=== PATIENT | female | born 1990 | race Caucasian/White ===

== ENCOUNTER 2016-10-09 11:06 | Day surgery (SDC) | payer OTHER ==
[~2016-10-09] VITALS: Ht 170.2 cm; Wt 102.7 kg
[2016-10-09] VITALS (9 sets, daily range): BP systolic 94–126; BP diastolic 48–74; PULSE 68–84; RESP 14–27; O2SAT 95–97
[~2016-10-09 11:06] MED LIST: CeFAZolin Inj 2 GM in IV Premix 1 EACH IV SCH; IBUP200C PO; LEVO1TBD PO
[2016-10-09] MEDS ORDERED: MetoCLOpramide 5 mg/mL 2 mL Inj ONE (11:07)
[2016-10-09] MEDS ORDERED: Dexamethasone 4 mg/mL Inj ONE (11:07)
[2016-10-09] MEDS ORDERED: Propofol 10,000 mCg/mL 20 mL Inj ONE (11:07)
[2016-10-09] MEDS ORDERED: fentaNYL-PF 50 mCg/mL 2 mL Inj ONE (11:07)
[2016-10-09] MEDS ORDERED: Ondansetron 2 mg/mL 2 mL Inj ONE (11:07)
[2016-10-09] MEDS ORDERED: Lactated Ringer's 1,000 ML IV ONE (11:34)
--- NOTE | 2016-10-09 12:27 | PCM.HPANE ---
Patient Data Surgeon Admitting Provider: Attending Provider:Eleno Brooks MD Primary Care Physician:Silvia Todd MD Other Provider:Bianca Kohliingham Anesthesia Reason for Visit Right Knee Meniscal Tear Ht/WT & BMI Height (Feet): 5 Height (Inches): 7.00 Weight (Kilograms): 102.7 Body Mass Index 35.00 Allergies Coded Allergies: Sulfa (Sulfonamide Antibiotics) (Verified Allergy, Unknown, UNKNOWN, ) Past Anesthesia History Anesthesia History: Denies:: Fam Anesthesia Reaction, Fam Malignant Hypertherm Diabetes History Hx Diabetes?: No MRSA MRSA: No Medications Home Meds Incl Beta Stevo: No Reported Medications Levonorgestrel-Eth Estradiol (Jolessa)1 Each Tbdspk.3mo1 Each PO DAILY 10/03/16 Ibuprofen 200 Mg Adxnyzv360 Mg PO QID PRN For Pain Ref 0 10/03/16 History History of ENT Problems?: Yes HEENT History: Positive for:: Sinus Problem (ENVIRONMENTAL ALLERGIES, HX SINUSITIS) TMJ Denies:: Abnormal Airway Cataracts Difficult Intubation Dysphagia Glaucoma Hearing Problem Denture Type: None Teeth Condition: Within Normal Limits Hx of Heart Problems?: No Cardiovascular History: Denies:: Heart Murmur Hypertension Hx of Respiratory Problem?: No Respiratory History: Denies:: Use of C-PAP Machine Hx Neurologic Problems?: No Hx of GI Problems?: No Hx of Problems?: No HX of Peritoneal Dialysis: No Female Hx: Denies:: Currently Pelvic Inflammatory (05/2016 C/OF POST-COITAL BLEEDING +CHLAMYDIA (TREATED) ) Skin History: Denies:: History Skin Disorders? Pressure Ulcers Hx Musculoskeletal Problems?: Yes Musculoskeletal History: Positive for:: Musculoskeletal Trauma (RT KNEE MENISCAL TEAR=CURRENT PROBLEM) Hx of Psycho/Social Problems?: No Hx Surgeries?: No Hx Any Other Health Problems?: No Other History: Denies:: Cancer Endocrine Disease Hospitalization Thyroid Disease History Blood Transfusions: Denies:: Blood Transfusions Hx Diabetes: No Have You Smoked inLast 12 mo: No Stop/Bang Treated for Sleep Apnea?: No Do You Have a CPAP Machine?: No S-Snoring: Do You Snore Loudly: No T-Tired: feel tired, fatigued: No O-Obsered: Observed not breath: No P-Blood Pressure: treated: No B- Body Mass Index > 35 kg/m2: Yes A- Age over 50: No N- Neck Large Circumference: Yes G- Gender Male: No DRAKE Total Score: 2 DRAKE Risk Assessment: Low Risk, <3 Yes Risk Assessment Category Category 1A: Patient has history of documented sleep apnea, and HAS NOT received any narcotic, sedative or anesthesia administration during this stay. Category 1B: Patient has history of documented sleep apnea, and HAS received any narcotic , sedative or anesthesia administration during this stay Category 2: Patient has SUSPECTED Obstructive Sleep Apnea, and HAS received any narcotic , sedative or anesthesia administration during this stay. Category 3: Patient has SUSPECTED Obstructive Sleep Apnea and HAS NOT received narcotic, sedative or anesthesia administration during this stay. Category 4: Outpatient in Procedural Areas with known sleep apnea or who screen positive for High Risk via the STOP/BANG questionnaire. Exam Exam Vital Signs Vital Signs Date Time Temp Pulse Resp B/P Pulse Ox O2 Delivery O2 Flow Rate FiO2 10/09/16 11:36 36.4 82 16 126/71 96 Room Air General Appearance: Oriented X3 HEENT/AIRWAY: MP 2 Lungs: Normal Air Movement Heart: Regular Rate/Rhythm Meds/Labs/Diagnostics Admission Meds Current Medications Lactated Ringer's (Lr) 1,000 ml @ ud STK-MED ONCE IV Last administered on 10/09t 11:34; Start 10/09/16 at 11:34; Stop 10/09/16 at 11:35; Status DC Plan Impression Patient chart reviewed, patient interviewed and anesthestic plan with risks, benefits, and alternatives discussed, and informed consent obtained. ASA Physical Status: ASA2 Mod Systemic Disease Anesthetic Plan: GA Bene/Risks/Altern/Consents: Yes HP Complete Prior to Induction: Yes Rafat Sullivan MD October 09, 2016 12:26
--- NOTE | 2016-10-09 12:54 | PCM.ANEP1 ---
Post Anesthesia Phase 1 PACU Phase 1 Assessment Vital Signs Vital Signs Date Time Temp Pulse Resp B/P Pulse Ox O2 Delivery O2 Flow Rate FiO2 10/09/16 11:36 36.4 82 16 126/71 96 Room Air Anesthetic Administered: GA Level of Alertness: Awake, talking Pain: No Nausea or Vomiting: No Lungs: Normal Air Movement Rafat Sullivan MD October 09, 2016 12:54
[2016-10-09] MEDS ORDERED: Lactated Ringer's 1,000 ML IV SCH (12:55)
[2016-10-09] MEDS ORDERED: Ondansetron 2 mg/mL 2 mL Inj IVPUSH PRN (12:55)
[2016-10-09] MEDS ORDERED: EPHEDrine Sulfate 50 mg/mL Inj IVPUSH PRN (12:55)
[2016-10-09] MEDS ORDERED: HYDROmorphone 1 mg/mL Inj IVPUSH PRN (12:55)
[2016-10-09] MEDS ORDERED: Dexamethasone 4 mg/mL Inj IVPUSH PRN (12:55)
[2016-10-09] MEDS ORDERED: Phenylephrine 10,000 mCg/mL Inj IVPUSH PRN (12:55)
[2016-10-09] MEDS ORDERED: MetoCLOpramide 5 mg/mL 2 mL Inj IVPUSH PRN (12:55)
[2016-10-09] MEDS ORDERED: fentaNYL-PF 50 mCg/mL 2 mL Inj IVPUSH PRN (12:55)
[2016-10-09] MEDS ORDERED: Lactated Ringer's 500 ML IV PRN (12:55)
[2016-10-09] MEDS ORDERED: Ropivacaine-PF 0.5% 30 mL Inj INJ ONE (13:08)
[2016-10-09] MEDS ORDERED: HYDROcodone-APAP 5-325 mg Tablet PO PRN (13:50)
[2016-10-09] MEDS ORDERED: Ketorolac 15 mg/mL Inj IVPUSH ONE (13:50)
--- NOTE | 2016-10-09 13:58 | PCM.ORTHOP ---
Orthopedic Operative Report Date of Service: October 09, 2016 Pre Operative Diagnosis right knee lateral meniscus tear Post Operative Diagnosis Same Procedure Right knee arthroscopy, Lateral meniscus repair, partial synovectomy Surgeon Surgeon: Eleno Brooks MD Assistants: Ronny Ramos Indication for Procedure Right knee meniscus tear Findings Per dictation Details of Procedure INDICATIONS: Candice Garcia is a 26-year-old female who has had a history of right knee pain. The patient has failed conservative management. X-rays show the tibiofemoral joints to be preserved with no DJD. MRI was obtained which reveals medial [lateral]l meniscus tear. The patient has had persistent symptoms and is now brought to the operating room for arthroscopy. The risks, benefits, and alternatives of surgery were discussed with the patient. The risks included but were not limited to infection, bleeding, damage to vessels and nerves, loss of motion, continued pain, re-tear of the meniscus, deep venous thrombosis, and complications due to anesthesia including nerve injury, myocardial infarction, stroke, , etc. The patient stated understanding of the nature of the surgical procedure and gave written and verbal consent to proceed. PROCEDURE: The patient was brought to the operating room and placed supine on the operating room table. After the administration of general anesthesia the patient was placed in the supine position. Examination of the knee revealed no evident instability with a trace effusion. All prominences were padded with appropriately and neurovascular structures protected. The right knee was confirmed to be the appropriate site following surgical time out. The right lower extremity was examined under anesthesia. Range of motion was 0-135 degrees. There was no varus or valgus or anterior or posterior instability. The right lower extremity was then prepped and draped in the usual fashion. Sterile prep and drape was then undertaken of the knee. The knee joint was injected with 20 ccs of 1% Lidocaine, along with 3 ccs of 1 % lidocaine in the medial and lateral portal sites respectively. A standard anterolateral parapatellar stab wound was created. The knee joint was entered with a blunt- tipped obturator, followed by the 30-degree video arthroscope. An anteromedial portal was established under arthroscopic control. A routine arthroscopic survey was performed. The patellofemoral joint showed grade 1 chondromalacia which was debrided down to stable tissue with a shaver. The medial joint space was then entered. The articular surfaces showed grade 1 chondromalacia. The medial meniscus appeared to be intact and was stable to probing. The ACL and PCL were noted to be intact. The lateral joint space was then entered. The articular surfaces were intact with grade 1 chondromalacia. There was a large bucket handle tear the posterior horn and body of the lateral meniscus with a small radial tear. A combination of the shaver and cutting instruments were then inserted and a debridement of this tissue down to stable tissue was undertaken of the radial tear. The posterior capsular meniscal junction was debrided and rasped to allow bony bleeding. 3 FasT-Fix Christopher and nephew anchors were placed after reduction of the bucket-handle tear. Moderate synovitis was noted anteriorly in the medial and lateral compartment and debrided with a shaver. The knee was irrigated with an additional 2 liters of lactated Ringer's solution. Excess fluid was drained. The portals were closed with 3-0 nylon as well as xeroform. The knee was injected with 20 mL of 0.5% ropivacaine. A dry sterile dressing was applied, followed by an DINO hose, soft roll, and JENN bandage. The patient was awakened in the operating room and transported to the recovery room in satisfactory condition. The patient appeared to tolerate the procedure well. At the completion of surgery the patient had soft compartments , palpable pulses, and brisk capillary refill. There were no complications noted. Please keep dressing clean dry and intact. Do not remove dressing until follow- up in clinic. If the dressing become soaked, you may remove the outer gauze and placed Band-Aids on the wounds. Do Not weight-bear on the affected extremity. You may use crutches or a walker fro assistance. Please leave brace on at all times. You may do range of motion exercises 3 times daily 0-90 deg.. You will follow up with me in clinic in 10-14 days for suture removal, and placement of new Steri-Strips. You will follow-up with me at 6 weeks and at that time continue ROM exercises and being WBAT. Please keep the affected extremity elevated when possible. Please take aspirin as prescribed. You may use ice and/or heat as needed for comfort. (preferably ice during the first 48- 72 hours) Please feel free to call with any further questions, comments, and/or concerns. Grafts, Implants: Implants-See Implant Record Complications There were no periprocedural complications identified. Condition Stable Anesthetic Administered: GA Catheters: None Output, Estimated Blood Loss: 5 Blood Admin during surgery: No Surgical Cast or Splint: Other Surgical Specimen Removed: No Specimen sent to Pathology: No copies to: Eleno Brooks MD, Christopher L MD October 09, 2016 13:58
== END 2016-10-09 23:59 | disposition home or self-care (01) ==
LOC: SAS 11:06
PROVIDERS: ATTEND Orthopaedic Surgery
DX: S83.251A Bucket-handle tear of lateral meniscus, current injury, right knee, initial encounter (principal); M22.41 Chondromalacia patellae, right knee; X50.1XXA Overexertion from prolonged static or awkward postures, initial encounter; Y93.79 Activity, other specified sports and athletics; Y92.39 Other specified sports and athletic area as the place of occurrence of the external cause; Y99.8 Other external cause status
CPT/HCPCS: 29882; C1713; J0690; J1100; J1170; J1885; J2405; J2765; J2795; J3010; J7120

== ENCOUNTER 2016-10-13 00:37 | Emergency (ER) | payer OTHER ==
[~2016-10-13] VITALS: Ht 170.2 cm; Wt 95.5 kg
[~2016-10-13 00:37] MED LIST changes: -CeFAZolin Inj 2 GM in IV Premix 1 EACH IV SCH
[2016-10-13 00:42] VITALS: BP 135/79; PULSE 84; RESP 16; O2SAT 98
--- NOTE | 2016-10-13 01:33 | ED.REPORT ---
HPI-Extremity Problem Lower Date of Service October 13, 2016 ED Provider: Dr. Osmar Combs D.O. A 26 year old female with a history of recent right meniscus tear s/p repair () presents to the ED with right calf pain onset today. The patient denies fever or other symptoms and her surgery site is otherwise healing well. Nursing Notes Stated Complaint: R LEG PAIN S/P MENISCUS REPAIR Chief Complaint: Extremity Trauma Nursing Notes Reviewed: Yes Allergies: Coded Allergies: Sulfa (Sulfonamide Antibiotics) (Verified Allergy, Unknown, UNKNOWN, ) Scheduled Levonorgestrel-Eth Estradiol (Jolessa) 1 Each Tbdspk.3mo 1 EACH PO DAILY Scheduled PRN Ibuprofen (Ibuprofen) 200 Mg Capsule 200 MG PO QID PRN PRN For Pain General Time Seen by MD: 01:33 Chief Complaint Other (Right Calf Pain) Hx Obtained From: Patient Arrived By: Walk-in Onset Occurred: 5 - 8 hours ago Symptom Duration: Since onset Location: : Leg right Quality: Painful Severity: Current: Moderate Severity: Maximum: Moderate Pertinent Negative: Relieved by nothing Recent Healthcare: Recent doctor visit, Previous surgery Past Medical History Past Medical History TMJ CHLAMYDIA (TREATED) Past Surgical History Right meniscus repair (10/09/16) Smoking History Unknown if Ever Smoker Social History Other Social History: Good social support Ambulatory Status Independent Review of Systems Constitutional: Denies: Fever Musculoskeletal: Reports: Extremity pain (Right Calf) Complete sys rev & neg: except as marked. Respiratory: Denies: Non-productive cough, Shortness of breath GI: Denies: Diarrhea, Vomiting Physical Exam Initial Vital Signs Vital Signs (First) Date Time Temp Pulse Resp B/P Pulse Ox O2 Delivery O2 Flow Rate FiO2 10/13/16 00:42 36.4 84 16 135/79 98 Room Air Initial VS: Reviewed Head / Eyes: Atraumatic, Normocephalic ENT: Conjunctiva normal, No scleral icterus Neck: Supple, Full range of motion Respiratory: Breath sounds normal, Clear to auscultation, No respiratory distress Cardiovascular: Regular rate & rhythm, Heart sounds normal Skin: Warm, Dry, No cyanosis Neurologic: Alert, Oriented, Nonfocal Psychiatric: Mood/affect normal, Behavior normal, Normal thought content Lower Extremity / Pelvis / MS: Neurologic intact, Vascular intact (Strong pedal and femoral pulses) Right Leg / Calf: Positive: Tenderness present..., Negative: Erythema present, Swelling present... Right leg surgical site clean, dry, healing well General/Constitutional: Awake, Alert Re-Eval/Medical Decision Source of Hx: Old records Re-Evaluation/Progress : Time of Eval: 03:10 Patient Status: Condition improved, Pain improved Re-Evaluation/Progress Note: Discussed with patient physical exam findings, diagnosis, and plan for discharge if US findings are unremarkable. Follow-up and return to the ER instructions given. Patient agrees with plan for care and all questions were addressed. Counseled Regarding: Diagnosis, Need for follow-up, When/why to return to ED Discharge & Departure Impression: Primary Impression: Right calf pain Disposition: Home Discharge Condition All VS Reviewed: Yes Condition: Improved Patient Instructions: Leg Pain (ED) Additional Instructions: Elevate your leg as much as possible. Follow your postoperative instructions. Use your [place] as prescribed and directed. The ultrasound did not show evidence of a blood clot. Call Dr. Brooks's office on Friday for a follow-up. Return if any problems or any new or worsening symptoms. Return if her foot becomes cold or has a change in color. Do not drive tonight while under the influence of [place]. D do not consume alcohol or acetaminophen while under the influence of [place]. Referrals: Silvia Todd MD (PCP) Eleno Brooks MD Attestation Portions of this note were transcribed by Nat Wyman. I, Dr. Combs, personally performed the history, physical exam, and medical decision-making; I reviewed and confirmed the accuracy of the information in the transcribed note. Signed by: Markel Heaton, 10/13/2016, 03:20 copies to: Silvia Todd MD, Todd P DO October 13, 2016 01:33 NAT WYMAN October 13, 2016 01:47
[2016-10-13] MEDS ORDERED: HYDROcodone-APAP 5-325 mg Tablet PO ONE (01:45)
[2016-10-13 03:42] VITALS: BP 133/86; PULSE 79; RESP 16; O2SAT 99
--- NOTE | 2016-10-13 08:55 | DRSVH ---
PROCEDURE: US VEINOUS LEG DUPLEX UNILATERAL, RIGHT INDICATIONS: post knee surgery calf pain and swelling TECHNIQUE: Real-time imaging, as well as color and pulse Doppler interrogation, were performed of the lower extr emity deep veins from the inguinal ligament to the popliteal fossa. COMPARISON: None. FINDINGS: The deep veins are normally compressible, and free of intraluminal thrombus. Color and pu lse Doppler demonstrate normal phasic intraluminal flow. There is normal augmentation response to di stal compression maneuver. IMPRESSION: No evidence of deep vein thrombosis involving the right lower extremity. Dictated by: Flora Islas MD, PhD on 10/13/2016 at 8:54 Approved by: Flora Islas MD, PhD on 10/13/2016 at 8:54
== END 2016-10-13 03:42 | disposition home or self-care (01) ==
LOC: SED 00:37
DX: M79.661 Pain in right lower leg (principal); Z88.2 Allergy status to sulfonamides